=== PATIENT | female | born 1985 ===

== ENCOUNTER 2022-06-01 16:30 | Emergency (ER) | payer SELFPAY ==
[2022-06-01 16:42] VITALS: BP 161/100
--- NOTE | 2022-06-02 11:47 | Electrocardiograph Report ---
[facility] Test Date: 2022-06-01 Test Time: 16:42:11 Pat Name: LEIDA MIRANDA Department: Room: Gender: F Biomedical Equipment Specialist: AF : 1985 Requested By: ARNULFO LLAMAS Order Number: [id number] Reading MD: Javid Vasquez Measurements Intervals [place] Rate: 69 P: 73 DE: 164 QRS: 58 QRSD: 97 T: 62 QT: 437 QTc: 469 Interpretive Statements Sinus rhythm Probable left atrial enlargement No previous ECG available for comparison Electronically Signed On 06-02-2022 11:46:49 EDT by Javid Vasquez
== END 2022-06-02 03:32 | disposition left against medical advice (07) ==
LOC: ED 16:30
DX: I10 Essential (primary) hypertension (principal); Z53.21 Procedure and treatment not carried out due to patient leaving prior to being seen by health care provider
CPT/HCPCS: 93005